=== PATIENT | female | born 1935 | race Caucasian/White ===

== ENCOUNTER 2016-08-13 19:21 | Emergency (ER) | payer MEDICARE, OTHER ==
[2016-08-13] MEDS ORDERED: CIPROFLOXACIN HCL 500 MG TABLET PO ONE (21:15)
--- NOTE | 2016-08-13 21:19 | ER PHYSICIAN DOCUMENTATION ---
Physician Documentation [facility] Name:Florencia Dias Age:81 yrs Sex:Female :1935 Arrival Date:08/13/2016 Time:19:21 Bed1 Private MD:Bre Crespo ED, John Disposition: 08/13/16 20:41 Discharged to Home/Self Care. Impression: Bladder Infection (UTI). - Condition is Good. - Discharge Instructions: BLADDER INFECTION, Female (Adult). - Prescriptions for Cipro 500 mg Oral Tablet - take 1 tablet by ORAL route every 12 hours for 7 days; 14 tablet. - Medical Reconciliation form form. - Follow up: Bre Crespo MD; When: 2 - 3 days; Reason: Continuance of care. - Problem is new. - Symptoms have improved. HPI: 08/13 23:28 This 81 yrs old Female presents to ER via Wheelchair with complaints of jm General Weakness, Ankle Swelling. 23:28 The patient presents with swelling, weakness. The complaints affect the left ankle, jm right ankle. Onset: The symptom(s)/episode began/occurred today. Context: The patient can fully bear weight on the affected extremity. Associated signs and symptoms: Pertinent positives: generalized weakness. Severity of symptoms: in the emergency department the symptoms are unchanged. The patient has not experienced similar symptoms in the past. The patient has not recently seen a physician. Pt has been very weak and not able to walk on her own. She had spinal fusion surgery 6 weeks ago and now her feet are swollen and numb. No fevers. Pt w hx of UTIs in the past. . Historical: - Allergies: No known drug Allergies; - Home Meds: 1. hydrocodone-acetaminophen 2.5-325 mg oral tab 1 tab every 4 hours as needed for Pain 2. Zofran 4 mg oral tab 3. Flomax 0.4 mg oral cp24 1 cap once daily 1/2 hour following the same meal each day 4. Restoril 7.5 mg oral cap at bedtime as needed - PMHx: AAA without rupture; CELLULITIS; chronic back pain; BRONCHITIS; hypoxia; decubitus ulcer of buttock stage 2; spinal stenosis; - PSHx: spinal fusion 2016; - Tetanus: < 10 years. - Ebola Screening: : Patient negative for fever greater than or equal to 101.5 degrees Fahrenheit, and additional compatible Ebola Virus Disease symptoms. Patient denies exposure to infectious person. Patient denies travel to an Ebola-affected area in the 21 days before illness onset. No symptoms or risks identified at this time. . - Immunization history: Pneumococcal vaccine is up to date, Flu Vaccine < 1 year. - Social history: Smoking status: Patient uses tobacco products, current every day smoker. Patient/guardian denies using alcohol, street drugs. ROS: 23:28 Cardiovascular: Negative for chest pain. jm 23:28 Respiratory: Negative for shortness of breath. 23:28 MS/extremity: Positive for swelling, Negative for tenderness. 23:28 Neuro: Positive for weakness. 23:28 All other systems are negative. Exam: 23:28 Constitutional: The patient appears alert, awake, comfortable. 23:28 Cardiovascular: Rate: normal, Rhythm: regular. 23:28 Musculoskeletal/extremity: Extremities: grossly normal except: ROM: full active range of motion, full passive range of motion, Pulses: are normal with no appreciated deficits, Sensation intact. DVT Exam: No signs of deep vein thrombosis. Calves: are non-tender, have equal circumference. 23:28 Neuro: Mentation: is normal, Memory: is normal. 23:28 Psych: Behavior/mood is pleasant, cooperative, Affect is calm. Vital Signs: 20:09 BP 117 / 64; Pulse 64; Resp 16; Temp 98.8; Pulse Ox 94% on R/A; Weight 71.21 kg; Height mk2 5 ft. 6 in. (167.64 cm); Pain 0/10; 21:18 BP 115 / 61; Pulse 84; Resp 15; Temp 98.3; Pulse Ox 94% on R/A; Pain 0/10; mk2 20:09 Body Mass Index 25.34 (71.21 kg, 167.64 cm) mk2 MDM: 19:24 Patient medically screened. kavya 23:32 Differential diagnosis: UTI. Data reviewed: vital signs, nurses notes, lab test result(s), and as a result, I will discharge patient. Counseling: I had a detailed discussion with the patient and/or guardian regarding: the historical points, exam findings, and any diagnostic results supporting the discharge/admit diagnosis, lab results, the need for outpatient follow up, with the patient's primary care provider. ED course: PT diego man-roaring UTI. This is the cause of her weakness. Her weakness is the cause of her ankle swelling which is dependant edema from her immobility. Pt offered admission due to weakness form UTI, but declined as she is VERY good care at home w family that can care for her. Will do 7 days of cipro. . 08/13 20:10 Order name: EKG - 12 Lead; Complete Time: 20:10 mk2 Dispensed Medications: 21:11 Drug: Cipro 500 mg; Route: PO; mk2 21:18 Follow up: Response: No adverse reaction mk2 Point of Care Testing: Urine Dip: 20:29 pH: 5.5; ; Specific [place]: 1.020; Ketones: Negative; Glucose: Negative; Protein: rs Positive (++); Leukocytes: Positive; Nitrite: Positive (++) ; Blood: Moderate (++); Bilirubin: Negative ; Urobilinogen: NormalOther: cloudy yellow with a strong odor. Signatures: Michel Henry MD MD jm Kruger, Meg, RN RN mk2
--- NOTE | 2016-08-13 21:19 | ER NURSING DOCUMENTATION ---
Nurse's Notes [facility] Name:Florencia Dias Age:81 yrs Sex:Female :1935 Arrival Date:08/13/2016 Time:19:21 Bed1 Private MD:Bre Crespo Diagnosis:Bladder Infection (UTI) Presentation: 08/13 19:29 Acuity: ISABELLA 2 lc 20:02 Presenting complaint: Patient states: I just feel "blah" Daughters state that pt had a mk2 spinal fusion in June and has been doing PT in home health but pt has been feeling "weaker" the last week. Daughters state she has frequent UTI's and also concerned about her heart. Transition of care: Home. Care prior to arrival: None. 20:02 Method Of Arrival: Wheelchair mk2 23:27 Acuity: ISABELLA 3 mk2 Triage Assessment: 20:05 General: Appears in no apparent distress, Behavior is cooperative, pleasant. Pain: mk2 Denies pain. Neuro: No deficits noted. Cardiovascular: Heart tones S1 S2. Respiratory: Breath sounds are clear bilaterally. Derm: No deficits noted. Pt has pitting edema in bilateral ankles that is new of this week. PT IS ALERT AND ORIENTED. Musculoskeletal: Reports Spinal fusion in June. Historical: - Allergies: No known drug Allergies; - Home Meds: 1. hydrocodone-acetaminophen 2.5-325 mg oral tab 1 tab every 4 hours as needed for Pain 2. Zofran 4 mg oral tab 3. Flomax 0.4 mg oral cp24 1 cap once daily 1/2 hour following the same meal each day 4. Restoril 7.5 mg oral cap at bedtime as needed - PMHx: AAA without rupture; CELLULITIS; chronic back pain; BRONCHITIS; hypoxia; decubitus ulcer of buttock stage 2; spinal stenosis; - PSHx: spinal fusion 2016; - Tetanus: < 10 years. - Ebola Screening: : Patient negative for fever greater than or equal to 101.5 degrees Fahrenheit, and additional compatible Ebola Virus Disease symptoms. Patient denies exposure to infectious person. Patient denies travel to an Ebola-affected area in the 21 days before illness onset. No symptoms or risks identified at this time. . - Immunization history: Pneumococcal vaccine is up to date, Flu Vaccine < 1 year. - Social history: Smoking status: Patient uses tobacco products, current every day smoker. Patient/guardian denies using alcohol, street drugs. Screenin:11 Infectious Disease Risk None. Abuse screen: Denies threats or abuse. Nutritional mk2 screening: No deficits noted. Assessment: 20:09 See Triage Assessment done by same RN. mk2 Vital Signs: 20:09 BP 117 / 64; Pulse 64; Resp 16; Temp 98.8; Pulse Ox 94% on R/A; Weight 71.21 kg; Height mk2 5 ft. 6 in. (167.64 cm); Pain 0/10; 21:18 BP 115 / 61; Pulse 84; Resp 15; Temp 98.3; Pulse Ox 94% on R/A; Pain 0/10; mk2 20:09 Body Mass Index 25.34 (71.21 kg, 167.64 cm) 2 ED Course: 19:23 Patient arrived in ED. jl 19:24 Bre Crespo MD is Private Physician. jl 19:24 Michel Henry MD is Attending Physician. 19:30 Triage completed. lc 20:02 Kim Trammell, RN is Primary Nurse. mk2 20:09 Arm band placed on Bed in low position Call Light in Reach Gowned HOB Elevated Side mk2 rails up x1. 20:14 EKG done per protocol. Performed by ED Staff. Shown to ED physician. rs 20:33 Quick cath inserted Returned cloudy urine. Patient tolerated well. rs 20:40 Bre Crespo MD is Referral Physician. jm 21:19 Valuables Remains with patient. 2 Administered Medications: 21:11 Drug: Cipro 500 mg; Route: PO; mk2 21:18 Follow up: Response: No adverse reaction 2 Point of Care Testing: Urine Dip: 20:29 pH: 5.5; ; Specific [place]: 1.020; Ketones: Negative; Glucose: Negative; Protein: rs Positive (++); Leukocytes: Positive; Nitrite: Positive (++) ; Blood: Moderate (++); Bilirubin: Negative ; Urobilinogen: NormalOther: cloudy yellow with a strong odor. Outcome: 20:41 Discharge ordered by MD. kavya 21:18 Discharged to home via wheelchair. 2 21:18 Condition: good 21:18 Discharge instructions given to patient, Instructed on discharge instructions, follow up and referral plans. medication usage, Prescriptions given X 1. 21:19 Patient left the ED. mk2 08/14 10:49 Discharge F/U Call: Spoke with: spouse with permission of patient. Are you having any lc pain? no. Have you filled your prescriptions? yes. Did your discharge instructions answer all of your questions? yes Overall Care on a scale of 1-10 with 10 being the best care, you rate our care as: Other comments: FEELING MUCH BETTER What is the one thing you feel we could do to improve? Signatures: Romana Lawrence RN RN Zohreh Calderon RN RN Michel Stallworth MD MD jm Kruger, Meg, RN RN mk2 Sha Perez
== END 2016-08-13 21:19 | disposition home or self-care (01) ==
LOC: ER 19:21
DX: N39.0 Urinary tract infection, site not specified (principal); R53.1 Weakness; M79.89 Other specified soft tissue disorders; R60.0 Localized edema; Z98.890 Other specified postprocedural states; Z79.899 Other long term (current) drug therapy
CPT/HCPCS: 93005; 93010; 99283; 99284